=== PATIENT | male | born 1970 | race Caucasian/White ===

== ENCOUNTER 2022-01-21 06:29 | Day surgery (SDC) | payer BC ==
[~2022-01-21] VITALS: Ht 172.7 cm; Wt 72.6 kg
[~2022-01-21 06:29] MED LIST: ESCI20TA39 PO; HYDR-3965 PO; cefazolin/dext.iso 2gm/50ml IV ONE; famotidine 20mg tablet PO ONE; ringers solution, lacted 1,000 ML IV SCH
[2022-01-21 07:59] LABS: MEAN PLATELET VOLUME 7.1 FL (7.4-10.4); RED CELL DISTRIBUTION WIDTH 12.6 % (11.5-14.5)
[2022-01-21 08:03] LABS: MEAN CORPUSCULAR HEMOGLOBIN 33.9 PG (27.0-31.0); MEAN CORPUSCULAR HGB CONC 33.9 g/dL (33.0-36.5); MEAN CORPUSCULAR VOLUME 100.1 FL (78-98); PRE OP HEMATOCRIT 40.4 % (42.0-52.0); PRE OP HEMOGLOBIN 13.7 g/dL (14.0-17.9); PRE OP PLATELET COUNT 242 X10'3 (140-440); RED BLOOD COUNT 4.04 X10'6 (4.70-6.10)
[2022-01-21 08:23] LABS: ALBUMIN/GLOBULIN RATIO 1.1 (1.1-1.5); ALKALINE PHOSPHATASE 49 IU/L (46-116); BLOOD UREA NITROGEN 17 MG/DL (7-18); BUN/CREATININE RATIO 24.3 (5.4-32.0); CALCIUM 8.8 MG/DL (8.5-10.1); CHLORIDE 108 MMOL/L (99-107); PRE OP ALT 39 U/L (30-65); PRE OP ANION GAP 10 (8-16); PRE OP AST 38 U/L (10-37); PRE OP BILIRUB, TOTAL 0.5 MG/DL (0.0-1.0); PRE OP GLUCOSE 85 MG/DL (70-104); PRE OP POTASSIUM 4.3 MMOL/L (3.4-5.1); PRE OP SODIUM 145 MMOL/L (135-145); TOTAL CARBON DIOXIDE 27.5 MMOL/L (24-32); TOTAL PROTEIN 7.8 G/DL (6.4-8.2); eGFR > 90 ML/MIN
[2022-01-21 08:29] LABS: TOTAL CELLS COUNTED 100
[2022-01-21 08:32] LABS: PLATELET ESTIMATE NORMAL
[2022-01-21] MEDS ORDERED: vancomycin 1,000mg inj ONE ×2 (09:35→09:50)
[2022-01-21] MEDS ORDERED: BUPIVAcaine 0.5% inj/PF 30 ML ONE (09:37)
[2022-01-21] MEDS ORDERED: LIDOcaine 0.5% (5mg/ml) 50ml vial ONE (10:00)
[2022-01-21] MEDS ORDERED: FENTANYL CITRATE/PF 50 MCG/1 ML VIAL ONE ×3 (10:01→10:33)
[2022-01-21] MEDS ORDERED: midazolam 1 mg/ML 2ml injection ONE ×2 (10:04→10:27)
[2022-01-21] MEDS ORDERED: ketamine 50mg/5ml syringe ONE (10:34)
[2022-01-21 10:40] VITALS: BP 137/92
[2022-01-21 10:42] VITALS: BP 137/92
[2022-01-21] MEDS ORDERED: propofol inj 20 ML IV ONE (10:50)
[2022-01-21 11:09] VITALS: BP 144/102
--- NOTE | 2022-01-21 11:09 | NUR ---
Received from OR via [facility] , accompanied by Anesthesiologist IBETH and report given by Anesthesiolgist. PATIENT WITH 20G PIV IN RIGHT UE RUNNING LR AT 100. DENIES PAIN AT THIS TIME. PATIENT IN SPLINT AND SLING TO LEFT UE. + CAP REFILL. VSS Addendum: 01/21/22 at 1128 by Brandyn Rogers RN, RN Amended: Links added.
[2022-01-21 11:20] VITALS: BP 150/105
[2022-01-21 11:30] VITALS: BP 148/106
[2022-01-21 11:40] VITALS: BP 136/97
--- NOTE | 2022-01-21 11:49 | NUR ---
ALL DISCHARGE CRITERIA HAS BEEN MET. VSS, PAIN AT A TOLERABLE LEVEL, VOIDING AND ABLE TO SAFELY AMBULATE AND TRANSFER SELF. IV TAKEN OUT WITHOUT ANY COMPLICATIONS. ALL DISCHARGE INSTRUCTIONS COVERED WITH PATIENT AND ALL QUESTIONS ANSWERED. PATIENT TAKEN OUT VIA WHEELCHAIR TO PERSONAL VEHICLE WHERE FAMILY/FRIEND DROVE PATIENT HOME. SLING ON DRESSING CDI. + CAP REFILL TO ALL FINGERS. DENIES PAIN AT THIS TIME Addendum: 01/21/22 at 1228 by Brandyn Rogers RN, RN Amended: Links added.
== END 2022-01-21 11:49 | disposition home or self-care (01) ==
LOC: PAS 06:29 → EDSEX 09:00 → PAS 11:49
PROVIDERS: ATTEND Orthopaedic Surgery Hand Surgery
DX: T81.32XA Disruption of internal operation (surgical) wound, not elsewhere classified, initial encounter (principal); I10 Essential (primary) hypertension; F32.A Depression, unspecified; Z79.899 Other long term (current) drug therapy; Z98.890 Other specified postprocedural states; Z72.89 Other problems related to lifestyle; Y83.8 Other surgical procedures as the cause of abnormal reaction of the patient, or of later complication, without mention of misadventure at the time of the procedure; Y92.89 Other specified places as the place of occurrence of the external cause
CPT/HCPCS: 13160; 36415; 80053; 82948; 85025; 87070; 87075; 87077; 87102; 87186; 87635; 93005; A6222; C9803; J2250; J2704; J3010; J3370; J3490; J7030; J7120; S0020; Z7506; Z7512; 85007; A4565; A4618; A6449; A7000